=== PATIENT | male | born 1980 | race Two or more races ===

== ENCOUNTER 2024-05-05 09:30 | Emergency (ER) | payer OTHER ==
[~2024-05-05] VITALS: Ht 172.7 cm; Wt 90.0 kg
[2024-05-05 10:47] VITALS: BP 149/94; PULSE 86; RESP 18; TEMP 98.2; O2SAT 97
[2024-05-05] MEDS ORDERED: IBUP-1456 PO (11:07)
--- NOTE | 2024-05-05 11:08 | ED.PDOC ---
Back pain HPI HPI Comments This is a pleasant 43-year-old gentleman who is quadriplegic presents to the emergency department for a chest wall injury. Onset occurred several days ago at the gym when he was bench pressing 375 lb. Denies the bar falling on him but complains of pain to the left pectoral in his concerned about a possible muscle tear Denies chest pain shortness of breath Chief Complaint: Chest Wall Injury Time Seen by MD: 10:00 Reviewed Notes: Nurses Notes, Medications, Allergies Allergies: Coded Allergies: NO KNOWN ALLERGIES (Unverified , 05/05/24) Home Meds Active Scripts Ibuprofen (Ibuprofen) 800 Mg Tab, 1 TAB PO TID for 10 Days, #30 TAB 0 Refills Prov:PARVIN ISIDRO Nikunj DRUMMOND 05/05/24 Information Source: Patient Mode of Arrival: Wheelchair Past Medical History PAST MEDICAL HISTORY: Denies Surgical History: Denies all surgeries Family History Family History: Reviewed,noncontributory to illness All Other Systems: Reviewed and Negative (per hpi) Physical Exam General Appearance: No Apparent Distress, Normal HEENT: Normal ENT Inspection, Pharynx Normal, TMs Normal Neck: Full Range of Motion, Non-Tender, Normal, Normal Inspection Respiratory: Chest Non-Tender, Lungs Clear, No Accessory Muscle Use, No Respiratory Distress, Normal Breath Sounds Cardiovascular: No Edema, No JVD, No Murmur, No Gallop, Normal Peripheral Pulses, Regular Rate/Rhythm Breast Exam: Deferred Gastrointestinal: No Organomegaly, Non Tender, No Pulsatile Mass, Normal Bowel Sounds, Soft Genitalia: Deferred Pelvic: Deferred Rectal: Deferred Extremities: No calf tenderness, Normal capillary refill, Normal inspection, Normal range of motion, Non-tender, No pedal edema Musculoskeletal : Apperance: Normal Neurologic: Alert, 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 Was a procedure done?: No Images 1 - 3 cm contusion. Tender to palpation. Full ROM of the shoulder Back Pain Differential Dx Differential Diagnosis: Musculoskeletal Pain X-Ray, Labs, Meds, VS Vital Signs Date Time Temp Pulse Resp B/P (MAP) Pulse Ox O2 Delivery O2 Flow Rate FiO2 05/05/24 10:47 98.2 86 18 149/94 (112) 97 98.2 05/05/24 10:47 86 18 97 Room Air 05/05/24 10:04 98.2 86 18 149/94 (112) 97 X-Ray, Labs, Meds, VS Comment History and physical exam consistent with musculoskeletal injury Supportive care advised (rest, ice, heat, NSAIDs, stretching exercises) Massage muscles with cold pack or ice for 20 minutes 4 times per day. Usually most useful if there is swelling during the first 48 hours Heating pad on the most painful area for 20 minutes to relieve muscle spasm Sleep and the most comfortable sleeping position (usually on the side with knees bent) Light stretching, no strenuous activity, avoid frequent bending, avoid carrying heavy objects Discussed possible benefits of yoga and acupuncture Return precautions discussed Time of 1ST Reevaluation: 11:00 Reevaluation 1ST: Improved Patient Education/Counseling: Diagnosis, Treatment Family Education/Counseling: Diagnosis, Treatment Departure 1 Departure Time of Disposition: 11:06 Impression: Primary Impression: Muscle strain of chest wall Qualified Codes: S29.011A - Strain of muscle and tendon of front wall of thorax, initial encounter Disposition: 01 HOME / SELF CARE / HOMELESS Condition: Stable e-Prescriptions Ibuprofen (Ibuprofen) 800 Mg Tab 1 TAB PO TID for 10 Days, #30 TAB 0 Refills Prov: PARVIN ISIDRO NP 05/05/24 Discharged With: Self Critical Care Note Critical Care Time?: No Stability Stability form required: No Heart Score Heart Score: Heart Score Response (Comments) Value History N/A 0 EKG N/A 0 Age N/A 0 Risk Factors N/A 0 Troponin N/A 0 Total 0 PARVIN ISIDRO NP May 05, 2024 11:08
== END 2024-05-05 11:10 | disposition home or self-care (01) ==
LOC: ER 09:30
DX: S29.011A Strain of muscle and tendon of front wall of thorax, initial encounter (principal); G82.50 Quadriplegia, unspecified; X58.XXXA Exposure to other specified factors, initial encounter; Y93.89 Activity, other specified; Y92.89 Other specified places as the place of occurrence of the external cause; Y99.8 Other external cause status